=== PATIENT | female | born 1955 | race Caucasian/White ===

== ENCOUNTER 2022-12-15 13:41 | Emergency (ER) | payer MEDICARE ==
[~2022-12-15] VITALS: Ht 167.6 cm; Wt 86.8 kg
[2022-12-15] MEDS ORDERED: LISINOPRIL2.5 MG PO (13:49)
[2022-12-15] MEDS ORDERED: OMEPRAZOLE20 MG PO (13:49)
[2022-12-15] MEDS ORDERED: ESTRACE0.5 MG PO (13:59)
[2022-12-15] MEDS ORDERED: KELP150 MCG PO (14:00)
[2022-12-15] MEDS ORDERED: DICLOFENAC35 MG PO (14:00)
[2022-12-15 14:08] LABS: BASOPHILS 0.8 % (0-2); EOSINOPHILS 1.2 % (0-6); HEMATOCRIT 37.6 % (35.0-50.0); HEMOGLOBIN 12.6 g/dL (12.0-18.0); LYMPHOCYTES 26.7 % (24-44); MCH 31.7 (27-36); MCHC 33.5 g/dl (30-36); MCV 94.6 fl (81-99); MONOCYTES 6.8 % (0-12); NEUTROPHILS 64.5 % (39-80); PLATELET COUNT 350 K/uL (140-440); RBC 3.98 M/ul (4.3-5.7); RDW 13.8 (10.5-15.0)
[2022-12-15 14:19] LABS: ALBUMIN 3.9 g/dL (3.4-5.0); ALBUMIN/GLOBULIN RATIO 1.11 (1.1-2.4); ALKALINE PHOSPHATASE 105 U/L (46-116); ALT (SGPT) 22 U/L (14-59); ANION GAP 14.8 (7-21); AST (SGOT) 20 U/L (15-37); BILIRUBIN, TOTAL 0.2 ng/dL (0.2-1.0); BUN/CREATININE RATIO 17.77 (6.0-28.6); CALCIUM 8.9 mg/dL (8.5-10.1); CARBON DIOXIDE 25 mmol/L (21-32); CHLORIDE 102 mmol/L (98-107); GLOMERULAR FILTRATION RATE,EST 71 mL/min (>60); POTASSIUM 3.8 mmol/L (3.5-5.1); PROTEIN, TOTAL 7.4 g/dL (6.4-8.2); UREA NITROGEN 16 mg/dL (7-18)
[2022-12-15 15:40] VITALS: BP 134/76
--- NOTE | 2022-12-15 20:30 | EKG ---
[facility] [address] [place] [address] Signed Sinus rhythm with premature atrial complexes Nonspecific ST abnormality Abnormal ECG No previous ECGs available Confirmed by Alejo Garcia MD () on 12/15/2022 8:30:06 PM Electronically Signed By: ALEJO GARCIA MD 12/15/22 2030 PATIENT NAME: YUE CAR PETER Electrocardiogram DATE OF : 57 PHYSICIAN: ALEJO GARCIA MD REPORT #: [id number] REPORT IS CONFIDENTIAL AND NOT TO BE RELEASED WITHOUT AUTHORIZATION
== END 2022-12-15 15:41 | disposition home or self-care (01) ==
LOC: ED 13:41
PROVIDERS: Student in an Organized Health Care Education/Training Program
DX: R10.13 Epigastric pain (principal); Z79.899 Other long term (current) drug therapy
CPT/HCPCS: 36415; 71045; 80053; 84484; 85025; 93005; 93010; 99284-25; A9270